=== PATIENT | male | born 1960 | race Caucasian/White ===

== ENCOUNTER → 2021-10-26 | Day surgery (SDC) | payer OTHER ==
[~2021-10-26] VITALS: Ht 190.5 cm; Wt 113.0 kg
[~2021-10-26] MED LIST: BREO ELLIPTA 11 EACH INH; CERTAGEN1 EACH PO; CHLORTHALIDONE25 MG PO; COREG 6.25MG6.25 MG PO; COZAAR100 MG PO; CRANBERRY200 MG PO; MICARDIS80 MG PO; NORVASC 10MG TA10 MG PO; ONE-DAILY MULT1 EACH PO; PROAIR HFA8.5 GM INH; SINUS CONGST-P1 EACH PO; TIZANIDINE HCL4 MG PO; TRAMADOL HCL50 MG PO; TYLENOL ARTHRI650 MG PO; VITAMIN D325 MC2 PO
== END | disposition home or self-care (01) ==
LOC: FAS 07:15
DX: Z12.11 Encounter for screening for malignant neoplasm of colon (principal); D12.5 Benign neoplasm of sigmoid colon; Z85.038 Personal history of other malignant neoplasm of large intestine; I12.9 Hypertensive chronic kidney disease with stage 1 through stage 4 chronic kidney disease, or unspecified chronic kidney disease; N18.31 Chronic kidney disease, stage 3a; M19.90 Unspecified osteoarthritis, unspecified site; J44.9 Chronic obstructive pulmonary disease, unspecified; I25.10 Atherosclerotic heart disease of native coronary artery without angina pectoris; F17.210 Nicotine dependence, cigarettes, uncomplicated; E66.9 Obesity, unspecified; Z68.31 Body mass index [BMI] 31.0-31.9, adult; Z93.3 Colostomy status; Z79.891 Long term (current) use of opiate analgesic; Z79.899 Other long term (current) drug therapy
CPT/HCPCS: J2250; J2704; J7120